=== PATIENT | female | born 1995 | race Two or more races ===

== ENCOUNTER 2017-03-11 16:52 | Emergency (ER) | payer OTHER ==
[2017-03-11 17:36] LABS: BASOPHILS 0.6 % (0.0-2.0); EOSINOPHILS 0.7 % (0.0-6.0); EOSINOPHILS# 0.1 X 10^3uL (0.0-0.4); HEMATOCRIT 43.6 % (36.0-48.0); HEMOGLOBIN 15.2 g/dL (12.0-16.0); LYMPHOCYTES 28.5 % (20.0-40.0); LYMPHOCYTES# 2.2 X 10^3uL (0.8-3.8); MEAN CELL VOLUME 82.9 fL (80.0-100.0); MEAN CORPUS. HGB CONCENTRATION 34.8 g/dL (32.0-36.0); MEAN CORPUSCULAR HEMOGLOBIN 28.9 pg (29.0-35.0); MEAN PLATELET VOLUME 7.7 fL (7.4-10.4); MONOCYTES 5.1 % (2.0-10.0); MONOCYTES# 0.4 X 10^3uL (0.2-1.0); NEUTROPHILS 65.1 % (54.0-75.0); NEUTROPHILS# 5.1 X 10^3uL (2.6-6.7); PLATELET COUNT 341 X 10^3uL (130-440); RED BLOOD COUNT 5.26 X 10^6uL (4.20-6.10); RED CELL DISTRIBUTION WIDTH 11.2 % (11.5-14.5); WHITE BLOOD COUNT 7.8 X 10^3uL (3.9-10.7)
[2017-03-11 17:45] LABS: A/G RATIO 1.5; ALBUMIN 4.7 g/dL (3.5-5.0); ALKALINE PHOSPHATASE 56 U/L (38-126); ALT 26 U/L (9-52); AST 17 U/L (14-36); BILIRUBIN, TOTAL 0.9 mg/dL (0.2-1.3); BLOOD UREA NITROGEN 17 mg/dL (7-17); CALCIUM 9.3 mg/dL (8.4-10.2); CHLORIDE 104 mmol/L (98-107); CREATININE 0.6 mg/dL (0.5-1.0); EST GLOMERULAR FILTRATION RATE > 60 mL/min; GLUCOSE 84 mg/dL (70-100); LIPASE 77 U/L (23-300); POTASSIUM 3.7 mmol/L (3.5-5.1); SODIUM 140 mmol/L (137-145); TOTAL PROTEIN 7.9 g/dL (6.3-8.2)
--- NOTE | 2017-03-11 19:00 | ER PHYSICIAN DOCUMENTATION ---
Physician Documentation [facility] Name:Kristy Son Age:21 yrs Sex:Female :1995 Arrival Date:03/11/2017 Time:16:52 Bed1 Private MD: Zak Dunbar Disposition: 03/11/17 18:26 Discharged to Home/Self Care. Impression: Acute Back Pain, Dyspnea, Hematochezia. - Condition is Good. - Discharge Instructions: BACK PAIN (Acute or Chronic), DYSPNEA. - Medical Reconciliation form form. - Follow up: Private Physician; When: 2 - 3 days; Reason: Recheck today's complaints, Continuance of care. - Problem is new. - Symptoms are unchanged. - Notes: The cause of your symptoms is not clear. You do not appear to have a worrisome emergency medical condition. Return here or go to a local Emergency Department for worsening pain, fever, trouble breathing, abdominal pain or rectal bleeding. Make sure to follow up with a local primary care physician within a week. HPI: 03/11 16:54 This 21 yrs old OOther Female presents to ER with complaints of Back Pain, Shortness Of tl1 Breath. 16:55 The patient presents with pain that is acute. tl1 17:50 The symptoms are located in the thoracic area, left mid back and right mid back. Onset: tl1 The symptoms/episode began/occurred 5 day(s) ago. The pain does not radiate. Associated signs and symptoms: Pertinent positives: cough, and posterolateral mid/lower rib pain. Severity of symptoms: At their worst the symptoms were moderate, in the emergency department the symptoms have improved. This patient does not have any risk factors for back pain. The patient has not experienced similar symptoms in the past. She comes to this ED from her home in [place], because she called around and we did not have a wait. She is a poor, non linear and contradictory historian. She says she was well until 4 days ago when she noted gradual onset of mid thoracic midline spine pain and bilateral lower posterolateral rib pain, worse with deep breath, and mild dyspnea. This is worse today. She also says she has a h/o "celiac", and has had some gluten containing foods recently, with constipation 3 days ago, 3 loose stools yesterday, and one stool with some blood today after a painful BM. She also has had epigastric pain which is sharp, but otherwise poorly defined. Denies h/o EtOH abuse or recreational drugs other than "ganja". No prior h/o kidney stones.. Historical: - Allergies: No known drug Allergies; - Home Meds: 1. probiotics 2. vitamins - PMHx: celiac; brain injury; - PSHx: TONSILLECTOMY; - Tetanus: < 10 years. - Ebola Screening: : No symptoms or risks identified at this time. . - Immunization history: Flu Vaccine >1 year. - Social history: Smoking status: Patient states was never smoker of tobacco. Patient uses marijuana. ROS: 18:06 Back: Negative for injury or acute deformity, decreased range of motion, radiated pain. tl1 18:06 All other systems are negative. Exam: 18:09 Constitutional: This is a well developed, well nourished patient who is awake, alert, tl1 and in no acute distress. Head/Face: Normocephalic, atraumatic. Eyes: Pupils equal round and reactive to light, extra-ocular motions intact. Lids and lashes normal. Conjunctiva and sclera are non-icteric and not injected. Cornea within normal limits. Periorbital areas with no swelling, redness, or edema. ENT: Nares patent. No nasal discharge, no septal abnormalities noted. Tympanic membranes are normal and external auditory canals are clear. Oropharynx with no redness, swelling, or masses, exudates, or evidence of obstruction, uvula midline. Mucous membranes moist. Neck: Trachea midline, no thyromegaly or masses palpated, and no cervical lymphadenopathy. Supple, full range of motion without nuchal rigidity, or vertebral point tenderness. No Meningismus. Cardiovascular: Regular rate and rhythm with a normal S1 and S2. No gallops, murmurs, or rubs. Normal PMI, no JVD. No pulse deficits. Respiratory: Lungs have equal breath sounds bilaterally, clear to auscultation and percussion. No rales, rhonchi or wheezes noted. No increased work of breathing, no retractions or nasal flaring. Skin: Warm, dry with normal turgor. Normal color with no rashes, no lesions, and no evidence of cellulitis. 18:09 MS/ Extremity: Pulses equal, no cyanosis. Neurovascular intact. Full, normal range tl1 of motion. 18:09 Back: pain, is absent, ROM is normal. 18:09 Neuro: Orientation: is normal, Mentation: is normal, Memory: is normal, Cranial nerves: grossly normal, Motor: moves all fours, Gait: is steady, at a normal pace, without difficulty, appropriate for age. Vital Signs: 17:16 BP 132 / 72; Pulse 84; Resp 16; Temp 97.7(O); Pulse Ox 95% on R/A; Weight 56.7 kg (R); lpr Height 5 ft. 2 in. (157.48 cm); Pain 4/10; 17:16 Body Mass Index 22.86 (56.70 kg, 157.48 cm) lpr MDM: 16:54 Patient medically screened. 1 03/11 17:44 Order name: CBC AUTO DIF, MDIF/RMOR IF IND; Complete Time: 18:19 EDMS 03/11 18:24 Interpretation: WHITE BLOOD COUNT 7.8; HEMOGLOBIN 15.2; HEMATOCRIT 43.6; PLATELET COUNT tl1 341. 03/11 17:50 Order name: COMPREHENSIVE METABOLIC PANEL; Complete Time: 18:19 EDMS 03/11 18:19 Interpretation: Normal: SODIUM 140; POTASSIUM 3.7; CHLORIDE 104; CARBON DIOXIDE 24; tl1 GLUCOSE 84; BLOOD UREA NITROGEN 17; CREATININE 0.6. 03/11 17:50 Order name: LIPASE; Complete Time: 18:19 EDMS 03/11 18:19 Interpretation: Normal: LIPASE 77. tl1 03/11 17:54 Order name: HCG, SERUM; Complete Time: 18:19 EDMS 03/11 18:19 Interpretation: Normal: HCG, SERUM NEGATIVE. tl1 03/11 17:36 Order name: CXR 2V [id number] EDMS 03/11 17:41 Order name: THORACIC SPINE; 2V [id number] EDMS 03/11 21:53 Order name: CXR 2V [id number] EDMS Dispensed Medications: No medications were administered Point of Care Testing: Urine Dip: 18:43 pH: 7.5; ; Specific [place]: 1.020; Ketones: Small; Glucose: Negative; Protein: lp Negative; Leukocytes: Negative; Nitrite: Negative ; Blood: Negative; Bilirubin: Negative ; Urobilinogen: Normal Signatures: Franca Chavez RN RN lp Roberts, Leslie, RN RN lpr Leigh, Zak, MD tl1
--- NOTE | 2017-03-11 19:00 | ER NURSING DOCUMENTATION ---
Nurse's Notes [facility] Name:Kristy Son Age:21 yrs Sex:Female :1995 Arrival Date:03/11/2017 Time:16:52 Bed1 Private MD: Diagnosis:Acute Back Pain;Dyspnea;Hematochezia Presentation: 03/11 16:55 Acuity: JENNIFER 3 lpr 17:14 Presenting complaint: Patient states: increasing SOB and mid back pain X 3-4 days. Also lpr reports bloody stools today and difficulty urinating. Transition of care: patient was not received from another setting of care. 17:14 Method Of Arrival: Walk In lpr Triage Assessment: 17:15 General: Appears in no apparent distress, Behavior is cooperative. Pain: Complains of lpr pain in mid back area. EENT: Oral mucosa is moist. Neuro: Level of Consciousness is awake, alert, obeys commands, Oriented to person, place, time, event. Cardiovascular: Capillary refill < 3 seconds. Respiratory: Airway is patent Respiratory effort is even, unlabored, Respiratory pattern is regular, symmetrical, Reports pain with cough pain with movement pain with respiration. GI: Abdomen is flat. Derm: Skin is intact, is healthy with good turgor, Skin is normal. Musculoskeletal: Circulation, motion, and sensation intact Capillary refill < 3 seconds. 17:19 : Reports difficulty urinating. lpr Historical: - Allergies: No known drug Allergies; - Home Meds: 1. probiotics 2. vitamins - PMHx: celiac; brain injury; - PSHx: TONSILLECTOMY; - Tetanus: < 10 years. - Ebola Screening: : No symptoms or risks identified at this time. . - Immunization history: Flu Vaccine >1 year. - Social history: Smoking status: Patient states was never smoker of tobacco. Patient uses marijuana. Screenin:17 Infectious Disease Risk None. Abuse screen: Denies threats or abuse. Nutritional lpr screening: No deficits noted. Assessment: 17:17 Neuro: Level of Consciousness is awake, alert, obeys commands, Oriented to person, lpr place, time. Vital Signs: 17:16 BP 132 / 72; Pulse 84; Resp 16; Temp 97.7(O); Pulse Ox 95% on R/A; Weight 56.7 kg (R); lpr Height 5 ft. 2 in. (157.48 cm); Pain 4/10; 17:16 Body Mass Index 22.86 (56.70 kg, 157.48 cm) lpr ED Course: 16:54 Patient arrived in ED. cj 16:54 Zak Fisher MD is Attending Physician. tl1 16:55 Triage completed. lpr 17:06 Franca Chavez RN is Primary Nurse. lp 17:18 Valuables Remains with patient Patient has correct armband on for positive lpr identification. Placed in gown. Bed in low position. Call light in reach. 17:18 Report given to Franca Chavez RN. lpr 17:28 Patient moved to radiology. tt 17:36 CXR 2V [id number] In Process Unspecified. EDMS 17:41 THORACIC SPINE; 2V [id number] In Process Unspecified. EDMS 17:41 Patient moved back from radiology. tt 17:55 CXR 2V [id number] Sent. tt 17:55 THORACIC SPINE; 2V [id number] Sent. tt Administered Medications: No medications were administered Point of Care Testing: Urine Dip: 18:43 pH: 7.5; ; Specific [place]: 1.020; Ketones: Small; Glucose: Negative; Protein: lp Negative; Leukocytes: Negative; Nitrite: Negative ; Blood: Negative; Bilirubin: Negative ; Urobilinogen: Normal Outcome: 18:26 Discharge ordered by . tl1 18:45 Discharged to home ambulatory. lp 18:45 Condition: good 18:45 Instructed on discharge instructions, follow up and referral plans. medication usage. 18:59 Patient left the ED. lp Signatures: Dispatcher [employer] EDUT Franca Chavez RN RN lp Terriere, Tracy Kika Esteves RN RN lpr Leigh, Tom, MD MD 1 Camille Alejandre
--- NOTE | 2017-03-11 19:13 | RADIOLOGY REPORT ---
Two views of the chest, without prior films for comparison, demonstrate the heart, vessels and lungs to be unremarkable. No infiltrate, fluid or pneumothorax is seen. IMPRESSION: Unremarkable two views of the chest. MTDD
--- NOTE | 2017-03-11 19:14 | RADIOLOGY REPORT ---
Four views of the thoracic spine demonstrate no displaced fracture, subluxation or bony destructive change. The disk spaces and adjacent soft tissues appear unremarkable. IMPRESSION: No displaced injury is identified. If clinically indicated, further evaluation and/or follow-up may be of benefit. [facility] HOSPITALJulito
== END 2017-03-11 18:59 | disposition home or self-care (01) ==
LOC: ER 16:52
DX: M54.6 Pain in thoracic spine (principal); R06.00 Dyspnea, unspecified; K92.1 Melena; R10.13 Epigastric pain; K90.0 Celiac disease
CPT/HCPCS: 36415; 71020; 72072; 80053; 83690; 84703; 85025; 99283